=== PATIENT | female | born 1985 | race Caucasian/White ===

== ENCOUNTER 2019-07-06 23:15 | Inpatient (IN) ==
[2019-07-06 23:51] LABS: Bilirubin,Urine Small (Negative); Blood,Urine Negative (Negative); Clarity,Urine Cloudy (Clear); Color,Urine Yellow (Yellow); Glucose,Urine (UA) Normal (Normal); Ketones,Urine Trace mg/dL (Negative); Leukocyte Esterase,Urine Negative (Negative); Nitrite,Urine Negative (Negative); Protein,Urine Negative (Neg-Trace); Specific Gravity,Urine 1.029 (1.010-1.025); Urobilinogen,Urine Normal (Normal)
[2019-07-06 23:52] LABS: Bacteria,Urine Moderate per hpf (None-Few); Hyaline Casts,Urine Few per lpf (None-Few); Squamous Epithelial Cell,Urine Many per lpf (None-Few); WBC,Urine 0-3 per hpf (0-3)
[2019-07-07 00:10] LABS: Amphetamine Screen,Urine Negative ng/mL (Cutoff=1000); Barbiturate Screen,Urine Negative ng/mL (Cutoff=200); Benzodiazepines Screen,Urine Negative ng/mL (Cutoff=200); Cannabinoid Screen,Urine Negative ng/mL (Cutoff = 50); Cocaine Screen,Urine Negative ng/mL (Cutoff= 300); Opiate Screen,Urine Positive ng/mL (Cutoff=300); Phencyclidine Screen,Urine Negative ng/mL (Cutoff=25)
[2019-07-07 00:12] LABS: Acetaminophen < 10 mcg/mL (10-20); BUN/Creatinine Ratio 18 (6-26); Blood Urea Nitrogen 14 mg/dL (6-20); Calcium 9.3 mg/dL (8.6-10.3); Carbon Dioxide 24 mEq/L (23-29); Chloride 108 mEq/L (98-107); Ethanol 10 mg/dL (Less than 10); Glucose 90 mg/dL (70-105); Osmolality,Calculated 290 (280-300); Potassium 3.9 mEq/L (3.5-5.1); Salicylate < 2.5 mg/dL (15.0-30.0); Sodium 140 mEq/L (136-145); eGFR For African Americans > 60 (> 60); eGFR For Non-African Americans > 60 (> 60)
[2019-07-07 00:19] LABS: Basophils # 0.1 K/mcL (0.0-0.2); Basophils % 0.5 %; Eosinophils # 0.7 K/mcL (0.0-0.6); Eosinophils % 7.4 %; Hematocrit 34.6 % (35.3-44.9); Hemoglobin 10.6 g/dL (11.5-15.4); Immature Granulocytes % 0.4 % (0-4); Lymphocytes % 41.5 %; Mean Corpuscular HGB Conc 30.6 g/dL (31.6-35.5); Mean Corpuscular Hemoglobin 24.7 pg (28.0-33.3); Mean Corpuscular Volume 80.7 fL (83.0-100.0); Mean Platelet Volume 11.7 fL (9.4-12.4); Monocytes # 0.6 K/mcL (0.0-1.3); Monocytes % 5.8 %; Neutrophils # 4.2 K/mcL (1.6-8.9); Platelet Count 263 K/mcL (140-400); Red Blood Count 4.29 M/mcL (3.82-4.97); Red Cell Distribution Width 16.8 % (11.5-14.5); Segmented Neutrophils % 44.4 %; White Blood Count 9.5 K/mcL (4.3-11.1)
--- NOTE | 2019-07-07 01:45 | Emergency Department Note ---
Disposition Clinical Impression: Suicidal ideation Disposition: Admitted As Inpatient Condition: Good Referrals: NONE,PCP [Primary Care Provider] - Forms: ED Satisfaction Letter Time of Disposition: 04:50 Psych HPI - General Chief Complaint: ED Psychiatric Symptoms Stated Complaint: SI Time Seen by Provider: 07/06/19 23:40 Source: patient Nursing Notes Reviewed: Yes Vital Signs Reviewed: Yes - History of Present Illness HPI Narrative: 34-year-old female presents with suicidal ideation. Nursing reports patient has had stimuli stressors, including divorce, and also loss of her mother. Patient states that she has thoughts of overdosing. She also mentions a recent attempt. She describes approximately 5 days ago, she took multiple pills including ibuprofen, Flexeril, Ativan and oxycodone. She states that no one was aware that she had awoken the next day is not sure why it did not work. She states she is not evaluated after the overdose. Even prior to the overdose, she mentioned she has had decreased appetite however she relates that to her history of gastric sleeve. She denies any recent illness, urinary symptoms, back pain, vomiting. - Related Data Allergies Allergy/AdvReac Type Severity Reaction Status Date / Time Penicillins Allergy Rash Verified 07/06/19 23:30 All systems ED: reviewed and negative except as stated. Review of Systems: As Per HPI Constitutional: Denies: fever, chills ENT ED: Denies: throat pain Cardiovascular: Reports: chest pain (chronic). Denies: palpitations, dyspnea on exertion Respiratory: Denies: dyspnea Gastrointestinal: Reports: abdominal pain. Denies: nausea, vomiting, diarrhea, constipation Genitourinary: Denies: urgency, dysuria, frequency Musculoskeletal: Denies: back pain, neck pain Integumentary: Denies: rash Neurological: Denies: headache, weakness, numbness, paresthesias Psychiatric: Reports: anxiety, depression, suicidal thoughts Endocrine: Denies: fatigue Hematological/Lymphatic: Denies: lymphadenopathy Allergic/Immunologic: Denies: facial swelling Past Medical History - Past Medical History Medical history: Reports: no medical history Surgical history: Reports: , other Psychiatric history: Reports: depression - Social History Smoking Status: Current every day smoker Smokeless Tobacco Status: No Alcohol use: Reports: occasionally Drug use: Reports: none Physical Exam - General Limitations: no limitations General appearance: alert, in no apparent distress - Head Head exam: atraumatic, normocephalic - Eye Eye exam: Present: normal appearance, EOMI - ENT ENT exam: mucous membranes moist - Neck Neck exam: Present: full ROM - Chest Chest inspection: Present: symmetric chest wall rise - Respiratory Respiratory exam: Absent: respiratory distress - Cardiovascular Cardiovascular exam: Present: regular rate - Abdominal Exam Abdominal exam: Present: soft, Non-Tender - Extremities Exam Extremities exam: Present: normal inspection, full ROM, normal capillary refill - Back Exam Back exam: Present: full ROM. Absent: CVA tenderness (R), CVA tenderness (L) - Neurological Exam Neurological exam: Present: alert - Psychiatric Psychiatric exam: Present: normal affect, depressed, anxious, suicidal ideation - Skin Skin exam: Present: warm, dry, intact, normal color. Absent: rash, cyanosis, diaphoresis Course Course Narrative: 34-year-old female with known history of depression currently conveying suicidal ideation with known plan. She does describe recent suicide attempt. Do feel she would benefit from a one a consult. A medical clearance protocol orders was ordered by nursing. Was also informed by nursing that patient had x-ray contacted one a crisis line and was advised to come to the emergency department. For one a crisis line report, patient had taken 30 tablets of 60 mg Cymbalta, 20 tablets of Ativan 0.5 mg, and entire bottle of "50 mg" Flexeril, and entire bottle 200 mg ibuprofen, and oxycodone. I did review the patient OARRS she had no active prescriptions for oxycodone, however she did have some prescriptions of hydrocodone and acetaminophen from approximately 5 months ago. No radius or active prescriptions for buphenorphine. ED ibuprofen may be a reason for her abdominal pain and decreased appetite however she states that that has been going on for some time. She does have a history of gastric sleeve as well. Her hemoglobin has decreased since last I do feel this is consistent with microcytic anemia likely dietary related and related to her history of gastric sleeve. She denies any shortness breath or near syncopal symptoms. I have added on a hepatic panel and EKG. Her renal functions within normal limits. Her salicylate and Tylenol levels are not elevated. Plan will be for one a consult after medical clearance. @ [id number] was contacted and discuss patient's intentional overdose from 3 days ago. They advise if liver function tests are within normal limits no treatment necessary. Vital Signs Temperature 98.1 F 07/06/19 23:28 Pulse Rate 94 07/06/19 23:28 Respiratory Rate 20 07/06/19 23:28 Blood Pressure 167/93 07/06/19 23:28 O2 Sat by Pulse Oximetry 96 07/06/19 23:28 Temperature 98.1 F 07/07/19 04:30 Pulse Rate 69 07/07/19 04:30 Respiratory Rate 16 07/07/19 04:30 Blood Pressure 118/76 07/07/19 04:30 O2 Sat by Pulse Oximetry 95 07/07/19 04:30 Oxygen Delivery Oxygen Delivery Room Air Psych - Lab Data Result diagrams: 07/06/19 23:37 07/06/19 23:37 Lab Results 07/06/19 07/06/19 07/06/19 Range/Units 23:27 23:37 23:37 WBC (4.3-11.1) K/mcL RBC (3.82-4.97) M/mcL Hgb (11.5-15.4) g/dL Hct (35.3-44.9) % MCV (83.0-100.0) fL MCH (28.0-33.3) pg MCHC (31.6-35.5) g/dL RDW (11.5-14.5) % Plt Count (140-400) K/mcL MPV (9.4-12.4) fL Immature Gran % (0-4) % Seg Neutrophils % % Lymphocytes % % Monocytes % % Eosinophils % % Basophils % % Neutrophils # (1.6-8.9) K/mcL Lymphocytes # (0.6-4.6) K/mcL Monocytes # (0.0-1.3) K/mcL Eosinophils # (0.0-0.6) K/mcL Basophils # (0.0-0.2) K/mcL Sodium (136-145) mEq/L Potassium (3.5-5.1) mEq/L Chloride (98-107) mEq/L Carbon Dioxide (23-29) mEq/L BUN (6-20) mg/dL Creatinine (0.60-1.20) mg/dL Est GFR ( Amer) (> 60) Est GFR (Non-Af Amer) (> 60) BUN/Creatinine Ratio (6-26) Glucose (70-105) mg/dL Calculated Osmolality (280-300) Calcium (8.6-10.3) mg/dL Total Bilirubin (0.3-1.0) mg/dL Direct Bilirubin (0.0-0.2) mg/dL Indirect Bilirubin (0.0-1.2) mg/dL AST (13-39) Units/L ALT (7-52) Units/L Alkaline Phosphatase (34-104) Units/L Serum Total Protein (6.4-8.9) g/dL Albumin (3.5-5.7) g/dL Globulin (2.4-3.5) g/dL Albumin/Globulin Ratio (1.1-2.2) Urine Color Yellow (Yellow) Urine Clarity Cloudy A (Clear) Urine pH 6.0 (5.0-8.0) pH Units Ur Specific [place] 1.029 H (1.010-1.025) Urine Protein Negative (Neg-Trace) mg/dL Urine Glucose (UA) Normal (Normal) mg/dL Urine Ketones Trace H (Negative) mg/dL Urine Blood Negative (Negative) Urine Nitrite Negative (Negative) Urine Bilirubin Small H (Negative) Urine Urobilinogen Normal (Normal) mg/dL Ur Leukocyte Esterase Negative (Negative) Urine Microscopic RBC 5-15 H (0-3) per hpf Urine Microscopic WBC 0-3 (0-3) per hpf Ur Squamous Epith Cells Many H (None-Few) per lpf Urine Bacteria Moderate H (None-Few) per hpf Hyaline Casts Few (None-Few) per lpf Urine Test Negative (Negative) Salicylates (15.0-30.0) mg/dL Urine Opiates Screen Positive H (Tqerzm=860) ng/mL Ur Buprenorphine Scrn Positive H (Cutoff=5) ng/mL Acetaminophen (10-20) mcg/mL Ur Barbiturates Screen Negative (Uiivdm=065) ng/mL Ur Phencyclidine Scrn Negative (Cutoff=25) ng/mL Ur Amphetamines Screen Negative (Zbomyq=6863) ng/mL U Benzodiazepines Scrn Negative (Zsamhk=202) ng/mL Urine Cocaine Screen Negative (Cutoff= 300) ng/mL U Marijuana (THC) Screen Negative (Cutoff = 50) ng/mL Ur Drug Screen Interp See Below Ethyl Alcohol (Less than 10) mg/dL 07/06/19 07/06/19 Range/Units 23:37 23:37 WBC 9.5 (4.3-11.1) K/mcL RBC 4.29 (3.82-4.97) M/mcL Hgb 10.6 L (11.5-15.4) g/dL Hct 34.6 L (35.3-44.9) % MCV 80.7 L (83.0-100.0) fL MCH 24.7 L (28.0-33.3) pg MCHC 30.6 L (31.6-35.5) g/dL RDW 16.8 H (11.5-14.5) % Plt Count 263 (140-400) K/mcL MPV 11.7 (9.4-12.4) fL Immature Gran % 0.4 (0-4) % Seg Neutrophils % 44.4 % Lymphocytes % 41.5 % Monocytes % 5.8 % Eosinophils % 7.4 % Basophils % 0.5 % Neutrophils # 4.2 (1.6-8.9) K/mcL Lymphocytes # 4.0 (0.6-4.6) K/mcL Monocytes # 0.6 (0.0-1.3) K/mcL Eosinophils # 0.7 H (0.0-0.6) K/mcL Basophils # 0.1 (0.0-0.2) K/mcL Sodium 140 (136-145) mEq/L Potassium 3.9 (3.5-5.1) mEq/L Chloride 108 H (98-107) mEq/L Carbon Dioxide 24 (23-29) mEq/L BUN 14 (6-20) mg/dL Creatinine 0.76 (0.60-1.20) mg/dL Est GFR ( Amer) > 60 (> 60) Est GFR (Non-Af Amer) > 60 (> 60) BUN/Creatinine Ratio 18 (6-26) Glucose 90 (70-105) mg/dL Calculated Osmolality 290 (280-300) Calcium 9.3 (8.6-10.3) mg/dL Total Bilirubin 0.3 (0.3-1.0) mg/dL Direct Bilirubin 0.1 (0.0-0.2) mg/dL Indirect Bilirubin 0.2 (0.0-1.2) mg/dL AST 11 L (13-39) Units/L ALT 8 (7-52) Units/L Alkaline Phosphatase 47 (34-104) Units/L Serum Total Protein 7.1 (6.4-8.9) g/dL Albumin 4.2 (3.5-5.7) g/dL Globulin 2.9 (2.4-3.5) g/dL Albumin/Globulin Ratio 1.4 (1.1-2.2) Urine Color (Yellow) Urine Clarity (Clear) Urine pH (5.0-8.0) pH Units Ur Specific [place] (1.010-1.025) Urine Protein (Neg-Trace) mg/dL Urine Glucose (UA) (Normal) mg/dL Urine Ketones (Negative) mg/dL Urine Blood (Negative) Urine Nitrite (Negative) Urine Bilirubin (Negative) Urine Urobilinogen (Normal) mg/dL Ur Leukocyte Esterase (Negative) Urine Microscopic RBC (0-3) per hpf Urine Microscopic WBC (0-3) per hpf Ur Squamous Epith Cells (None-Few) per lpf Urine Bacteria (None-Few) per hpf Hyaline Casts (None-Few) per lpf Urine Test (Negative) Salicylates < 2.5 L (15.0-30.0) mg/dL Urine Opiates Screen (Uchxlj=687) ng/mL Ur Buprenorphine Scrn (Cutoff=5) ng/mL Acetaminophen < 10 L (10-20) mcg/mL Ur Barbiturates Screen (Wmqfzy=881) ng/mL Ur Phencyclidine Scrn (Cutoff=25) ng/mL Ur Amphetamines Screen (Etwrip=6088) ng/mL U Benzodiazepines Scrn (Bfmywq=260) ng/mL Urine Cocaine Screen (Cutoff= 300) ng/mL U Marijuana (THC) Screen (Cutoff = 50) ng/mL Ur Drug Screen Interp Ethyl Alcohol 10 H (Less than 10) mg/dL Psychiatric Medical Clearance - Medical Clearance Checklist Does the patient have a NEW psychiatric condition?: Yes Any abnormalities indicating possible medical illness?: Yes (anemia) Any history of medical issues?: No Medical History: No Social History Section defined Any abnormal vital signs prior to transfer?: No Current Vitals: Last Vital Signs Temp 98.1 F 07/07/19 04:30 Pulse 69 07/07/19 04:30 Resp 16 07/07/19 04:30 BP 118/76 09/06/19 04:30 Pulse Ox 95 07/07/19 04:30 Is the patient intoxicated or cognitively impaired?: No Psychiatric Lab Panel: Drug Levels and Toxicity 07/06/19 07/06/19 23:27 23:37 Urine Opiates Screen Positive H Acetaminophen < 10 L Ur Barbiturates Screen Negative Ur Phencyclidine Scrn Negative Ur Amphetamines Screen Negative U Benzodiazepines Scrn Negative Urine Cocaine Screen Negative U Marijuana (THC) Screen Negative Ethyl Alcohol 10 H Any abnormalities on the physical exam?: No Any abnormal labs?: Yes Abnormal Labs: Abnormal lab results Hgb 10.6 g/dL (11.5-15.4) L 07/06/19 23:37 Hct 34.6 % (35.3-44.9) L 07/06/19 23:37 MCV 80.7 fL (83.0-100.0) L 07/06/19 23:37 MCH 24.7 pg (28.0-33.3) L 07/06/19 23:37 MCHC 30.6 g/dL (31.6-35.5) L 07/06/19 23:37 RDW 16.8 % (11.5-14.5) H 07/06/19 23:37 Eosinophils # 0.7 K/mcL (0.0-0.6) H 07/06/19 23:37 Chloride 108 mEq/L (98-107) H 07/06/19 23:37 AST 11 Units/L (13-39) L 07/06/19 23:37 Urine Clarity Cloudy (Clear) A 07/06/19 23:37 Ur Specific [place] 1.029 (1.010-1.025) H 07/06/19 23:37 Urine Ketones Trace mg/dL (Negative) H 07/06/19 23:37 Urine Bilirubin Small (Negative) H 07/06/19 23:37 Urine Microscopic RBC 5-15 per hpf (0-3) H 07/06/19 23:37 Ur Squamous Epith Cells Many per lpf (None-Few) H 07/06/19 23:37 Urine Bacteria Moderate per hpf (None-Few) H 07/06/19 23:37 Salicylates < 2.5 mg/dL (15.0-30.0) L 07/06/19 23:37 Urine Opiates Screen Positive ng/mL (Hfazmu=353) H 07/06/19 23:27 Ur Buprenorphine Scrn Positive ng/mL (Cutoff=5) H 07/06/19 23:27 Acetaminophen < 10 mcg/mL (10-20) L 07/06/19 23:37 Ethyl Alcohol 10 mg/dL (Less than 10) H 07/06/19 23:37 Does the patient require durable medical equiptment?: No Is the patient ambulatory?: Yes Is the patient a fall risk?: No Has the patient been medically cleared?: Yes Any acute medical condition require Tx prior to transfer?: No Statement of Medical Clearance: I have evaluated the patient, reviewed diagnostic information, and certify that the patient's medical condition is sufficiently stable that transfer to the psychiatric unit does not pose a significant risk of deterioration.
[2019-07-07 03:02] LABS: Alanine Aminotransferase 8 Units/L (7-52); Albumin 4.2 g/dL (3.5-5.7); Albumin/Globulin Ratio 1.4 (1.1-2.2); Alkaline Phosphatase 47 Units/L (34-104); Aspartate Amino Transferase 11 Units/L (13-39); Bilirubin,Direct 0.1 mg/dL (0.0-0.2); Bilirubin,Indirect 0.2 mg/dL (0.0-1.2); Bilirubin,Total 0.3 mg/dL (0.3-1.0); Globulin 2.9 g/dL (2.4-3.5); Total Protein 7.1 g/dL (6.4-8.9)
[2019-07-07] MEDS ORDERED: *HR* LORazepam 1 MG TABLET PO PRN (06:17)
[2019-07-07] MEDS ORDERED: MOM Conc 10 ML UD.LIQ PO PRN (06:17)
[2019-07-07] MEDS ORDERED: Haloperidol Lactate 5 MG/ML VIAL IM PRN (06:17)
[2019-07-07] MEDS ORDERED: hydrOXYzine pamoate 25 MG CAPSULE PO PRN (06:17)
[2019-07-07] MEDS ORDERED: *HR* LORazepam 2 MG/ML VIAL IM PRN (06:17)
[2019-07-07] MEDS ORDERED: Mag Hydrox/Al Hydrox/Simeth 30 ML UDC PO PRN (06:17)
[2019-07-07] MEDS ORDERED: traZODone 50 MG TABLET PO PRN (06:17)
[2019-07-07] MEDS: Acetaminophen 325 MG TABLET PO PRN ×2 (09:58→23:36)
--- NOTE | 2019-07-07 13:12 | Psychiatry History & Physical ---
Date of Encounter: 07/07/19 Time of Encounter: 12:58 History of Present Illness Patient Stated Chief Complaint: suicidal ideation Medicare Admission Attestation: For traditional Medicare patients the provided hospital inpatient services are reasonable and necessary and in the case of services not specified as inpatient-only under 42 CFR 419.22 (n), that they are appropriately provided as inpatient services in accordance 42 CFR 412.3. For Critical Access Hospital the patient may reasonably be expected to be discharged or transferred to a hospital within 96 hours after admission to the Critical Access Hospital. Admitted From: Home Plans for Post Hospital Care: Home History of Present Illness: Ms. Rinaldi is a 34 year old female who was admitted for SI. Client made a polypharmacy overdose on Wednesday night, taking a significant amount of Cymbalta, Ativan, Ibuprofen, and Oxycontin that she got from a friend. Client states she regretted her decision and tried to make herself vomit but was unsuccessful and ended up falling asleep Client states a family member woke her up the next day and she went in to work but that she does not remember much of the day. Came to the ER for help yesterday. Glad her attempt was unsuccessful but knows she needs help. Client has had multiple stressors recently including the of her mother last week and her asking for a divorce three weeks ago. Client has a history of one prior hospitalization on last year for SI. She was discharged on Cymbalta but did not follow up as an outpatient with a psychiatrist or a counselor. Her PCP has continued the Cymbalta for her and added low dose Ativan. Client states depression and anxiety run on the maternal side of her family but that there are no suicides in family members. Client has no AOD history. 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 Discussed treatment options. Since client has received benefit from the Cymbalta in the past will continue to titrate this medication and add low dose Abilify for additional clinical effect. Client currently takes Ativan 0.5mg BID scheduled but agrees she only needs this as a prn. Past Med Surg Social Fam HX - Past Medical History Medical history: no medical history - Past Psychiatric History Psychiatric history: Reports: anxiety, depression, prior suicide attempt, previous psychiatric hospitalization Family psychiatric history: Yes Family Psychiatric History Details: depression and anxiety on maternal side of family Family History of Suicide: None - Past Surgical History Surgical History: , other - Social History Smoking Status: Current every day smoker Smokeless Tobacco Status: No Alcohol use: occasionally Drug use: none Medications & Allergies Duloxetine HCl 60 mg PO DAILY 07/07/19 [History] LORazepam [Ativan] 0.5 mg PO BID PRN 07/07/19 [History] Allergy/AdvReac Type Severity Reaction Status Date / Time Penicillins Allergy Rash Verified 07/06/19 23:30 Review of Systems Constitutional: Denies: fever, chills, weakness, weight change Eyes: Denies: eye pain, vision change Ears, Nose, Throat: Denies: ear pain, throat pain, dental pain, hearing loss, congestion Cardiovascular: Denies: chest pain, palpitations, dyspnea on exertion Respiratory: Denies: cough, dyspnea, wheezes Gastrointestinal: Denies: abdominal pain, nausea, vomiting, diarrhea, constipation Genitourinary female: Denies: urgency, dysuria, frequency, abnormal menses, dyspareunia Musculoskeletal: Denies: joint swelling, joint pain Integumentary: Denies: rash, lesions, pruritus Neurological: Denies: headache, weakness, numbness, memory loss Endocrine: Denies: fatigue, heat or cold intolerance Hematologic/Lymphatic: Denies: easy bruising, lymphadenopathy Allergic/Immunologic: Denies: urticaria, itchy eyes Exam - HEENT Head exam IM: Present: atraumatic Eye exam IM: Present: EOMI, normal appearance, PERRL ENT exam IM: Present: normal exam - Neurological Neurological exam: Present: CN II-XII intact - Respiratory Respiratory exam IM: Present: CTAB - GI/Abdominal GI/Abdominal exam IM: Present: normal bowel sounds, soft. Absent: tenderness - Extremities Extremities exam IM: Present: full ROM - Skin Skin exam IM: Present: dry, warm - Constitutional Vitals: Temp Pulse Resp BP Pulse Ox 99.4 F 68 18 125/82 96 07/07/19 09:00 07/07/19 09:00 07/07/19 09:00 07/07/19 09:00 07/07/19 09:00 General appearance: age & developmentally appropriate, well-groomed, well- nourished - Musculoskeletal Gait: normal Station: relaxed Strength & Tone: normal for patient - Psychiatric Patient Orientation: Yes Person, Yes Time, Yes Place Level of alertness: Alert Behavior: calm, cooperative Psychomotor activity: Normal Eye Contact: Maintains Eye Contact Mood Description: Depressed, Anxious Affect description: tearful Speech Volume: Normal Speech pattern: normal rate, normal rhythm, normal tone, fluent, spontaneous Language & Vocabulary: consistent with education Thought Process: Linear, Goal Oriented Thought Content: Yes Suicidal ideation, No Homicidal ideation, No Overt delusions Perceptual Disturbances: No Auditory hallucinations, No Visual hallucinations Attention Span Ability: Capable of Focused Attention Memory Description: Grossly Intact Patient Reliability: Reliable Historian Fund of knowledge: Yes abstraction ability, Yes average, Yes aware of current events Intelligence Estimate: Average Judgment: Fair Insight: Partial Results - Drug Levels and Toxicology Drug Levels and Toxicology: Drug Levels and Toxicity 07/06/19 07/06/19 23:27 23:37 Urine Opiates Screen Positive H Acetaminophen < 10 L Ur Barbiturates Screen Negative Ur Phencyclidine Scrn Negative Ur Amphetamines Screen Negative U Benzodiazepines Scrn Negative Urine Cocaine Screen Negative U Marijuana (THC) Screen Negative Ethyl Alcohol 10 H - Labs Labs: Laboratory Last Values WBC 9.5 K/mcL (4.3-11.1) 07/06/19 23:37 RBC 4.29 M/mcL (3.82-4.97) 07/06/19 23:37 Hgb 10.6 g/dL (11.5-15.4) L 07/06/19 23:37 Hct 34.6 % (35.3-44.9) L 07/06/19 23:37 MCV 80.7 fL (83.0-100.0) L 07/06/19 23:37 MCH 24.7 pg (28.0-33.3) L 07/06/19 23:37 MCHC 30.6 g/dL (31.6-35.5) L 07/06/19 23:37 RDW 16.8 % (11.5-14.5) H 07/06/19 23:37 Plt Count 263 K/mcL (140-400) 07/06/19 23:37 MPV 11.7 fL (9.4-12.4) 07/06/19 23:37 Immature Gran % 0.4 % (0-4) 07/06/19 23:37 Seg Neutrophils % 44.4 % 07/06/19 23:37 Lymphocytes % 41.5 % 07/06/19 23:37 Monocytes % 5.8 % 07/06/19 23:37 Eosinophils % 7.4 % 07/06/19 23:37 Basophils % 0.5 % 07/06/19 23:37 Neutrophils # 4.2 K/mcL (1.6-8.9) 07/06/19 23:37 Lymphocytes # 4.0 K/mcL (0.6-4.6) 07/06/19 23:37 Monocytes # 0.6 K/mcL (0.0-1.3) 07/06/19 23:37 Eosinophils # 0.7 K/mcL (0.0-0.6) H 07/06/19 23:37 Basophils # 0.1 K/mcL (0.0-0.2) 07/06/19 23:37 Sodium 140 mEq/L (136-145) 07/06/19 23:37 Potassium 3.9 mEq/L (3.5-5.1) 07/06/19 23:37 Chloride 108 mEq/L (98-107) H 07/06/19 23:37 Carbon Dioxide 24 mEq/L (23-29) 07/06/19 23:37 BUN 14 mg/dL (6-20) 07/06/19 23:37 Creatinine 0.76 mg/dL (0.60-1.20) 07/06/19 23:37 Est GFR ( Amer) > 60 (> 60) 07/06/19 23:37 Est GFR (Non-Af Amer) > 60 (> 60) 07/06/19 23:37 BUN/Creatinine Ratio 18 (6-26) 07/06/19 23:37 Glucose 90 mg/dL (70-105) 07/06/19 23:37 Calculated Osmolality 290 (280-300) 07/06/19 23:37 Calcium 9.3 mg/dL (8.6-10.3) 07/06/19 23:37 Total Bilirubin 0.3 mg/dL (0.3-1.0) 07/06/19 23:37 Direct Bilirubin 0.1 mg/dL (0.0-0.2) 07/06/19 23:37 Indirect Bilirubin 0.2 mg/dL (0.0-1.2) 07/06/19 23:37 AST 11 Units/L (13-39) L 07/06/19 23:37 ALT 8 Units/L (7-52) 07/06/19 23:37 Alkaline Phosphatase 47 Units/L (34-104) 07/06/19 23:37 Serum Total Protein 7.1 g/dL (6.4-8.9) 07/06/19 23:37 Albumin 4.2 g/dL (3.5-5.7) 07/06/19 23:37 Globulin 2.9 g/dL (2.4-3.5) 07/06/19 23:37 Albumin/Globulin Ratio 1.4 (1.1-2.2) 07/06/19 23:37 Urine Color Yellow (Yellow) 07/06/19 23:37 Urine Clarity Cloudy (Clear) A 07/06/19 23:37 Urine pH 6.0 pH Units (5.0-8.0) 07/06/19 23:37 Ur Specific [place] 1.029 (1.010-1.025) H 07/06/19 23:37 Urine Protein Negative mg/dL (Neg-Trace) 07/06/19 23:37 Urine Glucose (UA) Normal mg/dL (Normal) 07/06/19 23:37 Urine Ketones Trace mg/dL (Negative) H 07/06/19 23:37 Urine Blood Negative (Negative) 07/06/19 23:37 Urine Nitrite Negative (Negative) 07/06/19 23:37 Urine Bilirubin Small (Negative) H 07/06/19 23:37 Urine Urobilinogen Normal mg/dL (Normal) 07/06/19 23:37 Ur Leukocyte Esterase Negative (Negative) 07/06/19 23:37 Urine Microscopic RBC 5-15 per hpf (0-3) H 07/06/19 23:37 Urine Microscopic WBC 0-3 per hpf (0-3) 07/06/19 23:37 Ur Squamous Epith Cells Many per lpf (None-Few) H 07/06/19 23:37 Urine Bacteria Moderate per hpf (None-Few) H 07/06/19 23:37 Hyaline Casts Few per lpf (None-Few) 07/06/19 23:37 Urine Test Negative (Negative) 07/06/19 23:37 Salicylates < 2.5 mg/dL (15.0-30.0) L 07/06/19 23:37 Urine Opiates Screen Positive ng/mL (Kbhntw=220) H 07/06/19 23:27 Ur Buprenorphine Scrn Positive ng/mL (Cutoff=5) H 07/06/19 23:27 Acetaminophen < 10 mcg/mL (10-20) L 07/06/19 23:37 Ur Barbiturates Screen Negative ng/mL (Qwuntu=001) 07/06/19 23:27 Ur Phencyclidine Scrn Negative ng/mL (Cutoff=25) 07/06/19 23:27 Ur Amphetamines Screen Negative ng/mL (Jdpzfm=4397) 07/06/19 23:27 U Benzodiazepines Scrn Negative ng/mL (Libqto=928) 07/06/19 23:27 Urine Cocaine Screen Negative ng/mL (Cutoff= 300) 07/06/19 23:27 U Marijuana (THC) Screen Negative ng/mL (Cutoff = 50) 07/06/19 23:27 Ur Drug Screen Interp See Below 07/06/19 23:27 Ethyl Alcohol 10 mg/dL (Less than 10) H 07/06/19 23:37 Assessment and Plan (1) Major depress dis, severe Current visit: No Status: Acute Plan: Admit inpatient for safety and stabilization, Close observation, Suicide Precautions per unit protocol, Encourage participation in unit milieu, Group Therapy, Monitor sleep, Monitor appetite Risks, benefits, side effects, alternatives discussed w/pt: Yes Patient agreeable to treatment: Yes Plans for Post Hospital Care: Home Estimated Length of Stay (Days): 4
[2019-07-07] MEDS: *HR* LORazepam 0.5 MG TABLET PO PRN ×2 (13:53→20:20)
[2019-07-07] MEDS: ARIPiprazole 5 MG TABLET PO SCH (13:53)
[2019-07-07] MEDS ORDERED: Nicotine 21 MG PATCH.TD24 TD SCH (20:30)
[2019-07-08] MEDS: Acetaminophen 325 MG TABLET PO PRN (07:53)
[2019-07-08 07:56] VITALS: BP 150/87
[2019-07-08] MEDS: ARIPiprazole 5 MG TABLET PO SCH (08:49)
--- NOTE | 2019-07-08 08:58 | Discharge Summary ---
Date of Encounter: 07/08/19 Time of Encounter: 08:58 Diagnosis - Discharge Diagnosis (1) Major depress dis, severe Status: Acute Medications - Discharge Medications Prescriptions: ARIPiprazole [Abilify] 5 mg PO QAM #30 tablet DULoxetine [Cymbalta] 90 mg PO DAILY #90 capsule. ARIPiprazole [Abilify] 5 mg PO QAM #30 tablet 07/08/19 [Rx] DULoxetine [Cymbalta] 90 mg PO DAILY #90 capsule. 07/08/19 [Rx] LORazepam [Ativan] 0.5 mg PO BID PRN tablet 07/08/19 [Rx] Allergy/AdvReac Type Severity Reaction Status Date / Time Penicillins Allergy Rash Verified 07/06/19 23:30 Results Procedures and tests throughout hospitalization: Completed Lab Orders Category Date Time Status Acetaminophen Stat Lab 07/06/19 23:37 Completed Basic Metabolic Panel Stat Lab 07/06/19 23:37 Completed Complete Blood Count [HEME] Stat Lab 07/06/19 23:37 Completed Drug Screen, Urine [UCHEM] Stat Lab 07/06/19 23:27 Completed Ethanol Stat Lab 07/06/19 23:37 Completed Hepatic Panel Stat Lab 07/06/19 23:37 Completed Test Result, Urine [URIN] Stat Lab 07/06/19 23:37 Completed Salicylate Stat Lab 07/06/19 23:37 Completed Urinalysis reflex Microscopic [URIN] Stat Lab 07/06/19 23:37 Completed Completed Microbiology Orders Category Date Time Status Culture,Urine [RM] Stat Lab 07/07/19 01:17 Completed Provider Date of admission: 07/07/19 04:52 Primary care physician: PCP NONE Discharging clinician: Rocio Schultz Psychiatry Exam - Constitutional Vitals: Temp Pulse Resp BP Pulse Ox 98.2 F 78 18 150/87 96 07/08/19 07:54 07/08/19 07:54 07/08/19 07:54 07/08/19 07:54 07/08/19 07:54 General appearance: age & developmentally appropriate, well-groomed, well- nourished - Musculoskeletal Gait: normal Station: relaxed Strength & Tone: normal for patient - Psychiatric Patient Orientation: Yes Person, Yes Time, Yes Place Level of alertness: Alert Behavior: calm, cooperative Psychomotor activity: Normal Eye Contact: Maintains Eye Contact Mood Description: Euthymic/stable Affect description: congruent with mood, full range Speech Volume: Normal Speech pattern: normal rate, normal rhythm, normal tone, fluent, spontaneous Language & Vocabulary: consistent with education Thought Process: Linear, Goal Oriented Thought Content: No Suicidal ideation, No Homicidal ideation, No Overt delusions Perceptual Disturbances: No Auditory hallucinations, No Visual hallucinations Attention Span Ability: Capable of Focused Attention Memory Description: Grossly Intact Patient Reliability: Reliable Historian Fund of knowledge: Yes abstraction ability, Yes aware of current events Intelligence Estimate: Average Judgment: Fair Insight: Partial Hospital Course Hospital course: Ms. Rinaldi is a 34 year old female who was admitted following an overdose attempt. Client had overdosed on a Wednesday night and reports she panicked after taking the pills but was unable to make herself vomit. She ended up falling asleep. Doesn't remember much of the next day but told family what she had done and they encouraged her to seek help. She came into the hospital at the end of the week. She was no longer feeling suicidal but was still very depressed and wanted help. She was taking Cymbalta and scheduled Ativan at the time of admission. While on the unit her Cymbalta was increased, low dose Abilify was added as an augmenter, and her Ativan was changed to a prn. Client did very well with these med changes. Today she is bright, reactive, and future oriented. She is denying any further SI, intent, or plan and states she was immediately regretful for what she had done. Looking forward to seeing her daughter. Even though she is going through a divorce she reports her is very supportive. She also has positive relationships with her grandparents and in-laws. She is not currently linked with outpatient services but wants medication management and counseling on an ongoing basis. Since it is the weekend all outpatient clinics will be closed but staff will contact her early next week with follow up appointments. On the unit she has been pleasant and interacting appropriately with staff and peers. She has been out of her room attending groups. She has been sleeping and eating well. Feels ready for discharge. Total time spent with client greater than 30 minutes. Patient was educated of her diagnosis and the risks, benefits, and side effects of this treatment and alternative treatment options and was monitored for responsiveness and side effects. Mood, anxiety, sleep, appetite, and interest improved, as did future orientation. Self-harm thoughts subsided, thinking cleared, psychosis resolved, and mood stabilized. Patient was able to attend both individual and group therapy sessions as well as meeting with the psychiatrist daily and urged to discuss any medication or treatment issues or other concerns. The patient was educated primarily by verbal means about their diagnosis and manifestations in their life. The option for treatment including group and individual therapy programming was offered to the patient in the use of medications with all their potential risks, benefits, and side effects were discussed with the patient at length. The patient was given the opportunity to ask questions and was noted to participate in the treatment in the planning process. The patient felt ready and eager to be discharged from the inpatient psychiatric unit to continue on with treatment as an outpatient. The patient agreed that she is safe for this disposition. The patient was considered to be able to participate in informed consent and decision making with respect to medical, legal, and financial issues of the time of discharge. At the time of discharge the patient adamantly denied any concerns for lethality including suicidal or homicidal thoughts ideations or plans and was future oriented toward ongoing mental health care, medical follow-up and sobriety. - Time Spent with Patient Total time spent providing and/or coordinating discharge services: Greater than 30 minutes Assessment and Plan - Patient/Caregiver Discharge Instructions Activity: resume usual activities as tolerated Diet: regular diet - Follow up Plan Follow up with: NONE,PCP [Primary Care Provider] - Functional capacity at discharge: independent ambulation Overall status at discharge: Stable Disposition: Home, Self-Care Quality - Multiple Antipsychotics Patient discharged on 2 or more antipsychotic medications: No Procedures - Procedures Procedures: Medication Management, Crisis Stabilization, Supportive Therapy, Group Therapy
[2019-07-08] MEDS: *HR* LORazepam 0.5 MG TABLET PO PRN (10:16)
--- NOTE | 2019-07-10 09:01 | Electrocardiograph Report ---
[facility] [employer] Test Date: 2019-07-07 Pat Name: Danielle Rinaldi Department: [id number] Room: 1A44 Gender: F Nicu Rn: : 1985 Requested By: Heber Hood Order Number: [id number] Reading MD: Octavio Pinzon Measurements Intervals [place] Rate: 60 P: 21 CA: 185 QRS: 48 QRSD: 88 T: 12 QT: 408 QTc: 408 Interpretive Statements SINUS RHYTHM NONSPECIFIC ST & T-WAVE ABNORMALITY Electronically Signed On 07-10-2019 8:58:58 EDT by Octavio Pinzon
== END 2019-07-08 11:00 | disposition home or self-care (01) | DRG 885 ==
LOC: EMEROOARM 23:15 → 1ANU 07-07 04:52
PROVIDERS: ADMIT Psychiatry & Neurology Psychiatry; ATTEND Psychiatry & Neurology Psychiatry